=== PATIENT | female | born 1955 | race Caucasian/White ===

== ENCOUNTER 2017-05-16 04:11 | Emergency (ER) | payer BC ==
[2017-05-16 04:56] LABS: CHLORIDE,CL 104 mEq/L (98-106); SODIUM,NA 138 mEq/L (136-145)
[2017-05-16 05:31] VITALS: BP 117/68
[2017-05-16] MEDS ORDERED: Ketorolac 60 MG/2 ML SDV IM ONE (05:34)
--- NOTE | 2017-05-16 05:44 | EDM.PDOC ---
ED HPI GENERAL MEDICAL PROBLEM - General Chief Complaint: Syncope Stated Complaint: passing out Time Seen by Provider: 05/16/17 04:40 Source of Information: Reports: Patient History Limitations: Reports: No Limitations - History of Present Illness INITIAL COMMENTS - FREE TEXT/NARRATIVE: Ana is a 61 yo female who presents to the ER via her with concerns of a syncopal episode earlier this morning. She admits she recently underwent hip replacement a couple days ago and has had two episodes since her surgery. States the first one happened in the hospital when she was being discharged. Now the second episode happened this morning. Admits she was sent home with Tramadol and Oxycodone but hasn't been taking the oxycodone as she is nervous to take it. While in the hospital she was getting Toradol and Tylenol but hasn' t had any of either since discharge. Associated Symptoms: Reports: No Other Symptoms Right Hip Pain Score (Numeric/FACES): 5 - Related Data Allergies Allergy/AdvReac Type Severity Reaction Status Date / Time No Known Allergies Allergy Verified 05/16/17 04:52 Home Meds: Home Meds Aspirin 1 tab PO BID 11/27/15 [History] Omeprazole 1 tab PO BEDTIME 11/27/15 [History] Past Medical History HEENT History: Reports: None Musculoskeletal History: Reports: Arthritis - Infectious Disease History Infectious Disease History: Reports: MRSA - Past Surgical History Female Surgical History: Reports: Section Musculoskeletal Surgical History: Reports: Hip Replacement Social & Family History - Family History Family Medical History: Noncontributory - Tobacco Use Smoking Status *Q: Never Smoker Second Hand Smoke Exposure: No - Caffeine Use Caffeine Use: Reports: Coffee - Recreational Drug Use Recreational Drug Use: No ED ROS GENERAL - Review of Systems Review Of Systems: See Below Constitutional: Reports: Weakness (s/p surgery). Denies: Fever, Chills HEENT: Reports: No Symptoms. Denies: Vision Change Respiratory: Reports: No Symptoms. Denies: Shortness of Breath Cardiovascular: Reports: Blood Pressure Problem (low today), Syncope. Denies: Chest Pain, Edema, Palpitations GI/Abdominal: Reports: No Symptoms. Denies: Abdominal Pain, Constipation, Diarrhea : Reports: No Symptoms Musculoskeletal: Reports: Leg Pain (s/p surgery) Neurological: Reports: Syncope. Denies: Confusion, Dizziness, Headache, Numbness, Tingling, Trouble Speaking Psychiatric: Reports: No Symptoms - Physical Exam Exam: See Below Exam Limited By: No Limitations General Appearance: Alert, Mild Distress (discomfort from pain, is lying still) Eye Exam: Bilateral Eye: EOMI Ears: Normal External Exam, Normal Canal, Hearing Grossly Normal, Normal TMs Nose: Normal Inspection, No Blood Throat/Mouth: Normal Inspection, Normal Lips, Normal Teeth, Normal Gums, Normal Oropharynx, Normal Voice, No Airway Compromise Head Exam: Atraumatic, Normocephalic Respiratory/Chest: No Respiratory Distress, Lungs Clear, Normal Breath Sounds Cardiovascular: Normal Peripheral Pulses, Regular Rate, Rhythm, No Edema, No Murmur GI/Abdominal: Normal Bowel Sounds, Soft, Non-Tender, No Organomegaly, No Distention Neuro Exam (Abbreviated): Alert, Oriented, CN II-XII Intact (as tested), Normal Cognition, No Motor/Sensory Deficits Extremities: No Pedal Edema, Normal Capillary Refill Psychiatric: Normal Affect, Normal Mood Skin Exam: Warm, Dry, Intact, Normal Color, No Rash EKG INTERPRETATION EKG Date: 05/16/17 Time: 04:45 Rhythm: Other (sinus bradycardia) Rate (Beats/Min): 53 Course - Vital Signs Last Recorded V/S: Last Vital Signs Temp 98.5 F 05/16/17 05:30 Pulse 68 05/16/17 05:30 Resp 16 05/16/17 05:30 BP 117/68 05/16/17 05:30 Pulse Ox 99 05/16/17 05:30 - Orders/Labs/Meds Orders: Active Orders 24 hr Category Date Time Status EKG Documentation Completion [RC] STAT Care 05/16/17 04:40 Active Labs: Laboratory Tests 05/16/17 05/16/17 05/16/17 Range/Units 04:27 04:27 04:27 WBC 10.9 H (5.0-10.0) 10^3/uL RBC 3.37 L (4.00-5.50) 10^6/uL Hgb 13.7 (12.0-16.0) g/dL Hct 34.8 L (37.0-47.0) % MCV 103.3 H (82.0-94.0) fL MCH 40.7 H (27.0-32.0) pg MCHC 39.4 H (33.0-38.0) g/dL RDW Coeff of Idris 13.0 (11.0-15.0) % Plt Count 208 (150-400) 10^3/uL Neut % (Auto) 73.0 (35-85) % Lymph % (Auto) 11.9 (10-55) % [place] % (Auto) 14.0 (0-16) % Eos % (Auto) 0.8 (0-5) % Baso % (Auto) 0.3 (0-3) % Neut # (Auto) 7.94 H (1.80-7.00) 10^3/uL Lymph # (Auto) 1.30 (1.00-4.80) 10^3/uL [place]ven # (Auto) 1.52 H (0.00-0.80) 10^3/uL Eos # (Auto) 0.09 (0.00-0.45) 10^3/uL Baso # (Auto) 0.03 10^3/uL Sodium 138 (136-145) mEq/L Potassium 3.8 (3.5-5.0) mEq/L Chloride 104 (98-106) mEq/L Carbon Dioxide 28 (21-32) mmol/L BUN 11 (7-18) mg/dL Creatinine 0.7 (0.6-1.0) mg/dL Est Cr Clr Drug Dosing 75.94 mL/min Estimated GFR (MDRD) > 60 (>=60) mL/min Glucose 116 H D (75-99) mg/dL Calcium 8.1 L (8.4-10.1) mg/dL Creatine Kinase 153 (21-215) U/L Troponin I < 0.017 (0.00-0.06) ng/mL Urine Color Yellow (YELLOW) Urine Appearance Clear (CLEAR) Urine pH 5.5 (4.5-8.0) Ur Specific [place] 1.025 H (1.003-1.020) Urine Protein Negative (NEGATIVE) mg/dL Urine Glucose (UA) Negative (NEGATIVE) mg/dL Urine Ketones Trace H (NEGATIVE) mg/dL Urine Occult Blood Negative (NEGATIVE) Urine Nitrite Negative (NEGATIVE) Urine Bilirubin Negative (NEGATIVE) Urine Urobilinogen 0.2 (0.2-1.0) EU/dL Ur Leukocyte Esterase Negative (NEGATIVE) Urine RBC Not seen (0-5) /HPF Urine WBC Not seen (0-5) /HPF Departure - Departure Time of Disposition: 05:49 Disposition: Home, Self-Care 01 Clinical Impression: Vasovagal syncope - Discharge Information Instructions: Syncope, [id number], Dehydration, Adult, [id number], Hypotension, Vwtc-[id number] Forms: ED Department Discharge Additional Instructions: 1) Take pain pills as directed if pain is uncontrolled. Discussed side effects of pain medications as well. 2) Toradol 10mg tablets - may take 1 tablet every twice a day as needed. 3) Tylenol 650mg every 6 hours as needed as well, do not take more than 3000mg in a 24 hour period 4) Recommend pushing fluids as discussed. 5) Last blood pressure reading was normal today ) Return to ER or call us at [phone] if any concerns. - Problem List & Annotations (1) Vasovagal syncope SNOMED Code(s): 927153252, 767808592 Code(s): R55 - SYNCOPE AND COLLAPSE Status: Acute Current Visit: Yes - My Orders Last 24 Hours: My Active Orders 05/16/17 04:40 EKG Documentation Completion [RC] STAT - Assessment/Plan Last 24 Hours: My Active Orders 05/16/17 04:40 EKG Documentation Completion [RC] STAT Plan: Laboratory work and EKG were grossly unremarkable today. Will discharge home at this time with further instructions. is present as well and verbalizes understanding.
[2017-05-16] MEDS ORDERED: Take Home: Ketorolac 10 MG Tab, 4 Tab Pack PO ONE (05:51)
[2017-05-16] MEDS ORDERED: Ketorolac 10 MG Tab PO ONE (10:00)
== END 2017-05-16 06:00 | disposition home or self-care (01) ==
LOC: CC.ED 04:11
DX: R55 Syncope and collapse (principal); M19.90 Unspecified osteoarthritis, unspecified site; Z96.649 Presence of unspecified artificial hip joint; Z79.82 Long term (current) use of aspirin
CPT/HCPCS: 36415; 80048; 81001; 82550; 84484; 85025; 93005; 96372; 99284; A9270; J1885

== ENCOUNTER → 2018-05-24 | Day surgery (SDC) | payer BC ==
[~2018-05-24] MED LIST: Lactated Ringers 1,000 ML IV SCH; Propofol 200 MG/20 ML SDV IV ONE
[2018-05-24 10:31] VITALS: BP 108/72
--- NOTE | 2018-05-27 08:57 | OR ---
DATE OF OPERATION: 05/24/2018 PREOPERATIVE DIAGNOSIS: SCREENING COLONOSCOPY. POSTOPERATIVE DIAGNOSIS: SCREENING COLONOSCOPY. SURGEON: Jose Newton MD PROCEDURE: FULL-LENGTH COLONOSCOPY WITH SNARE POLYPECTOMY X3, FORCEPS POLYP REMOVAL X1. ANESTHESIA: RESIDENTIAL SERVICE TECHNICIAN. COMPLICATIONS: None. SPECIMEN: Four separate adenomas, please see op report. FINDINGS: 1. Full-length colonoscopy. 2. Tubular adenomas x3, villous adenoma x1. RECOMMENDATIONS: Follow up colonoscopy in 3 years. INDICATIONS: The patient has never had a prior colonoscopy. Noni Krishnan sent her for a screening procedure. DESCRIPTION OF PROCEDURE: The patient was prepped and draped, placed in the left lateral decubitus position. A lubricated Olympus colonoscope was inserted and with relative ease advanced to the cecum. Direct visualization of the ileocecal valve and appendiceal orifice was accomplished. The bowel prep was excellent. Upon withdrawal of the scope in the mid ascending colon, the patient had a flat villous adenoma, approximately a centimeter in size. It was very cumbersome to get to and snared with a small snare removed in usual fashion, suctioned into polyp trap #1 without difficulty. The rest of the ascending and transverse colon were completely benign. Throughout the descending and sigmoid colon area, I found no signs of any significant diverticular disease, vascular abnormalities, bleeding sites, or signs of colitis. In the distal sigmoid colon, the patient had a small flat hyperplastic polyp removed in its entirety with a forceps biopsy x1. In the rectal vault, the patient had 2 more tubular adenomas, one classic in appearance and the other one was very fleshy and approximately a centimeter in size. Both were removed with a snare and suctioned into polyp trap #2 without complication. Retroflexion scope in the rectum showed no anal lesions. Air was suctioned. Scope was removed without complication. JOE/JOSE R /[id number]
== END ==
LOC: CC.SDS 08:40
PROVIDERS: ATTEND Family Medicine
DX: Z12.11 Encounter for screening for malignant neoplasm of colon (principal); D12.2 Benign neoplasm of ascending colon; D12.5 Benign neoplasm of sigmoid colon; D12.8 Benign neoplasm of rectum; E66.9 Obesity, unspecified; Z68.37 Body mass index [BMI] 37.0-37.9, adult; E78.5 Hyperlipidemia, unspecified; D51.0 Vitamin B12 deficiency anemia due to intrinsic factor deficiency; Z79.899 Other long term (current) drug therapy
CPT/HCPCS: J2704; J7120

== ENCOUNTER → 2021-06-10 | Day surgery (SDC) | payer MEDICARE, BC ==
[~2021-06-10] MED LIST changes: +Glycopyrrolate 0.2 MG/ML SDV ONE; +Ketamine 200 MG/20 ML MDV ONE; -Propofol 200 MG/20 ML SDV IV ONE; +Propofol 200 MG/20 ML SDV ONE; +fentaNYL 100 MCG/2 ML SDV ONE
[2021-06-10 11:37] VITALS: BP 113/59; PULSE 57
--- NOTE | 2021-06-10 11:45 | OR ---
DATE OF OPERATION: 06/10/2021 PREOPERATIVE DIAGNOSIS: HISTORY OF POLYPS. POSTOPERATIVE DIAGNOSIS: HISTORY OF POLYPS. SURGEON: Jose Newton MD PROCEDURE: FULL-LENGTH COLONOSCOPY WITH FORCEPS POLYP REMOVAL X1. ANESTHESIA: MAC. COMPLICATIONS: None. SPECIMEN: Sessile polyp, transverse colon. FINDINGS: 1. Full-length colonoscopy. 2. 3 to 4 mm sessile polyp, transverse colon. RECOMMENDATIONS: Followup colonoscopy in 5 years. INDICATIONS: The patient has a prior history of polyps removed. She is due for a followup scope. DESCRIPTION OF PROCEDURE: The patient was prepped and draped, placed in the left lateral decubitus position. A lubricated Olympus colonoscope was inserted and easily advanced to the cecum. Direct visualization of the ileocecal valve and appendiceal orifice was accomplished. Bowel prep was fine. Upon withdrawal, the cecum and ascending colon appeared benign. In the mid to distal transverse colon, the patient had a flat sessile polyp measuring anywhere from 3 to 4 mm, removed with three forceps biopsies in its entirety. The rest of the transverse and descending colons were benign. Throughout the sigmoid colon, I could find no polyps, masses, ulceration, or bleeding sites. No vascular abnormalities or signs of colitis. There were no significant signs of diverticula. The rectal vault was benign. Retroflexion of the scope in the rectum showed no anal lesions. Air was suctioned, scope removed without complication. JOE/JOSE R /[id number]
== END ==
LOC: CC.SDS 09:35
PROVIDERS: ATTEND Family Medicine
DX: D12.3 Benign neoplasm of transverse colon (principal); E78.5 Hyperlipidemia, unspecified; D51.0 Vitamin B12 deficiency anemia due to intrinsic factor deficiency; E66.9 Obesity, unspecified; Z68.38 Body mass index [BMI] 38.0-38.9, adult; Z86.010 Personal history of colon polyps; R94.31 Abnormal electrocardiogram [ECG] [EKG]
CPT/HCPCS: 00812; 45380; 88305; 93005; 93010; J2704; J3010; J3490; J7120